=== PATIENT | male | born 1960 | race Two or more races ===

== ENCOUNTER 2023-11-30 22:46 | Emergency (ER) | payer OTHER ==
[2023-11-30 22:51] VITALS: BP 175/81; PULSE 63; RESP 20; TEMP 98.1; BMI 30.2
[2023-11-30] MEDS ORDERED: FLUORESCEIN NA 1 EA STRIP ONE (23:44)
[2023-11-30] MEDS ORDERED: TETRACAINE 0.5% OPHTH SOLN 2 ML BOTTLE ONE (23:45)
== END 2023-12-01 00:20 | disposition home or self-care (01) ==
LOC: JER 22:46
DX: S05.02XA Injury of conjunctiva and corneal abrasion without foreign body, left eye, initial encounter (principal); H10.32 Unspecified acute conjunctivitis, left eye; X58.XXXA Exposure to other specified factors, initial encounter
CPT/HCPCS: 99283-25